=== PATIENT | male | born 1975 | race Caucasian/White ===

== ENCOUNTER 2017-02-24 18:04 | Emergency (ER) | payer SELFPAY ==
[~2017-02-24] VITALS: Ht 165.1 cm; Wt 67.5 kg
[~2017-02-24 18:04] MED LIST: COREG12.5 M1 PO; Coreg PO; Ecotrin PO; Zestril,Prinivil PO
[2017-02-24 18:46] LABS: HEMATOCRIT 41.2 % (38.0-50.0); HEMOGLOBIN 13.6 G/DL (12.5-16.6); MCH 28.9 PG (29.0-34.0); MCV 87.7 FL (86-99); PLATELET COUNT 345 K/uL (156-360); RBC DIS.WIDTH-CV 12.6 % (11.8-14.6); RBC DIS.WIDTH-SD 40.8 % (39-53)
[2017-02-24 18:58] LABS: CHLORIDE 100 mEq/L (99-109); POTASSIUM 4.4 mEq/L (3.7-5.4); SODIUM 137 mEq/L (136-147)
[2017-02-24 19:00] LABS: GLUCOSE 120 mg/dL (70-99)
[2017-02-24 19:04] LABS: GFR ESTIMATE (CALCULATED) > 59 mL/min/ (58.99-99999)
[2017-02-24 19:05] LABS: UREA NITROGEN (BUN) 18 mg/dL (9-23)
[2017-02-24 19:10] LABS: TROP-I INTERPRETATION NEGATIVE; TROPONIN-I < 0.01 ng/mL (0.0-0.30)
[2017-02-24] MEDS ORDERED: ZESTRIL5 MG PO (21:41)
[2017-02-24 22:10] LABS: TROP-I INTERPRETATION NEGATIVE; TROPONIN-I < 0.01 ng/mL (0.0-0.30)
[2017-02-24 22:51] VITALS: BP 158/104
== END 2017-02-24 22:53 | disposition home or self-care (01) ==
LOC: EME 18:04
PROVIDERS: Physician Assistant
DX: R07.9 Chest pain, unspecified (principal); I10 Essential (primary) hypertension; F41.9 Anxiety disorder, unspecified; Z88.0 Allergy status to penicillin
CPT/HCPCS: 71046; 80048; 84484; 85027; 93005; 99281; 99284